=== PATIENT | male | born 1980 | race Caucasian/White ===

== ENCOUNTER 2021-08-11 20:28 | Emergency (ER) | payer OTHER ==
[~2021-08-11 20:28] MED LIST: MOTRIN600 MG PO; NAPROXEN500 MG PO; ROBAXIN750 MG PO
[2021-08-11 22:23] LABS: BASOPHIL 0.5 % (0-2); EOSINOPHIL 2.6 % (0-5); HCT 46.2 % (42.0-52.0); HGB 15.5 g/dl (13.2-18.0); LYMPHOCYTE 25.1 % (15-48); MCH 31.1 pg (25.0-31.0); MCHC 33.5 g/dL (32.0-36.0); MCV 92.8 fL (78.0-100.0); MPV 8.2 fL (6.0-9.5); NEUTROPHIL 61.5 % (41-80); NRBC 0; PLT 256 K/uL (150-400); RBC 4.98 M/uL (4.70-6.00); RDW 14.1 % (11.5-14.0); WBC 11.4 K/uL (4.0-10.5)
[2021-08-11 22:41] LABS: BUN/CREAT RATIO (CALC) 8.1 RATIO; CREATININE 0.86 mg/dL (0.67-1.17); POTASSIUM 3.9 mmol/L (3.5-5.1)
== END 2021-08-11 22:50 | disposition left against medical advice (07) ==
LOC: FER 20:28
PROVIDERS: Internal Medicine
DX: K61.0 Anal abscess (principal); F17.210 Nicotine dependence, cigarettes, uncomplicated; Z53.29 Procedure and treatment not carried out because of patient's decision for other reasons
CPT/HCPCS: 36415; 72192; 80048; 85025